=== PATIENT | male | born 1945 | race Hispanic/Latino ===

== ENCOUNTER 2017-05-22 08:05 | Emergency (ER) | payer MEDICARE, BC ==
[2017-05-22 08:28] VITALS: BP 125/60; PULSE 68; RESP 16; TEMP 97.8; O2SAT 98
--- NOTE | 2017-05-22 09:49 | ED PDOC ---
Arrival/HPI - General Chief Complaint: Lower Extremity Problem/Injury Time Seen by Provider: 05/22/17 08:29 Historian: Patient, Spouse, Family - History of Present Illness Narrative History of Present Illness (Text): you were treated in the ED today for being sent by your orthopedic surgeon today to have a re-evaluation right ankle xray to your already splinted right lower extremity ankle which had a dislocation and was last xrayed 05/09/17 with good alignment and the plan is to re-evaluate the alignment today with mild back muscle spasm due to have to move the cast around but otherwise without any trauma/fall/injury/spinal pain/nausea/vomiting/headache/dizziness/difficulty breathing/chest pain/abdomen pain/numbness/tingling/loss of limb function/pain with urination. 05/22/17 09:47 Time/Duration: > week (2 ) Symptom Onset: Gradual Symptom Course: Improving Past Medical History - Provider Review Nursing Documentation Reviewed: Yes - Travel History Have you recently traveled outside [place] w/in the past 3 mons?: No - Cardiac Hx Cardiac Disorders: No - Pulmonary Hx Respiratory Disorders: Yes Hx Sleep Apnea: Yes - Neurological Hx Neurological Disorder: No - HEENT Hx HEENT Disorder: No - Renal Hx Renal Disorder: No - Endocrine/Metabolic Hx Endocrine Disorders: Yes Other/Comment: pre-diabetes - Hematological/Oncological Hx Blood Disorders: No - Integumentary Hx Dermatological Disorder: No - Musculoskeletal/Rheumatological Hx Musculoskeletal Disorders: No - Gastrointestinal Hx Gastrointestinal Disorders: No - Genitourinary/Gynecological Hx Genitourinary Disorders: Yes Hx Prostate Cancer: Yes - Psychiatric Hx Psychophysiologic Disorder: No Hx Substance Use: No Family/Social History - Physician Review Nursing Documentation Reviewed: Yes Family/Social History: No Known Family HX Smoking Status: Never Smoked Hx Alcohol Use: Yes Frequency of alcohol use: Socially Hx Substance Use: No Allergies/Home Meds Allergies/Adverse Reactions: Allergies Sulfa (Sulfonamide Antibiotics) Allergy (Verified 05/22/17 08:24) ANGIOEDEMA Home Medications: Home Meds Medication Instructions Recorded Confirmed Unobtainable 05/22/17 05/22/17 Review of Systems - Review of Systems Constitutional: Normal Eyes: Normal ENT: Normal Respiratory: Normal Cardiovascular: Normal Gastrointestinal: Normal Genitourinary Male: Normal Musculoskeletal: Other (mild back muscle spasm) Skin: Normal Neurological: Normal Endocrine: Normal Hemo/Lymphatic: Normal Psychiatric: Normal Physical Exam Vital Signs Reviewed: Yes Vital Signs Temp Pulse Resp BP Pulse Ox 05/22/17 08:22 97.8 F 68 16 125/60 98 Temperature: Afebrile Blood Pressure: Hypertensive Pulse: Regular Respiratory Rate: Normal Appearance: Positive for: Well-Appearing, Non-Toxic, Comfortable Pain Distress: None Mental Status: Positive for: Alert and Oriented X 3 - Systems Exam Head: Present: Atraumatic, Normocephalic Pupils: Present: PERRL Extroacular Muscles: Present: EOMI Conjunctiva: Present: Normal Ears: Present: Normal Mouth: Present: Moist Mucous Membranes Pharnyx: Present: Normal Nose (External): Present: Atraumatic Nose (Internal): Present: Normal Inspection Neck: Present: Normal Range of Motion Respiratory/Chest: Present: Clear to Auscultation, Good Air Exchange Cardiovascular: Present: Regular Rate and Rhythm Abdomen: No: Tenderness, Distention, Normal Bowel Sounds, Peritoneal Signs, Rebound, Guarding, McBurney's Point Tender, Rovsing's Sign Present, Hernias, Feeding Tubes, Ostomy Tubes, Mass/Organomegaly, Scars, Other Back: Present: Normal Inspection, Other (no c-t-l spinal or paraspinal tenderness. no redness.) Upper Extremity: Present: Normal Inspection Lower Extremity: Present: Other (right lower cast in place, pink toes/neurovasc intact. left lower leg wnl.) Neurological: Present: GCS=15, CN II-XII Intact, Speech Normal, Motor Func Grossly Intact Skin: Present: Warm, Normal Color Psychiatric: Present: Alert, Oriented x 3, Normal Insight, Normal Concentration Medical Decision Making ED Course and Treatment: you were treated in the ED today for being sent by your orthopedic surgeon today to have a re-evaluation right ankle xray to your already splinted right lower extremity ankle which had a dislocation and was last xrayed 05/09/17 with good alignment and the plan is to re-evaluate the alignment today with mild back muscle spasm due to have to move the cast around but otherwise without any trauma/fall/injury/spinal pain/nausea/vomiting/headache/dizziness/difficulty breathing/chest pain/abdomen pain/numbness/tingling/loss of limb function/pain with urination. You were otherwise breathing easily, pink/moist lips, smiling with your , good strength/sensation, alert/oriented, walking easily, clear lungs, no abdomen tenderness, no fever temp 97.8, stable heart rate 68, stable breathing rate 16, excellent oxygen level 98% room air, elevated blood pressure 125/60 which we recommend repeat in 2-3 days primary care office to determine further treatment, radiology right ankle xray report pending, family didn't want to wait for official report and thus signed out AMA and will fu in orthopedic surgeon's office. 05/22/17 09:51 05/22/17 10:36 - RAD Interpretation Narrative RAD Interpretations (Text): 05/22/17 10:38 right ankle xray no acute. Radiology Orders: 05/22/17 08:51 ANKLE RIGHT 3 VIEWS ROUTINE [RAD] Stat Bindery Supervisor: ED Physician Disposition/Present on Arrival - Present on Arrival Any Indicators Present on Arrival: No History of DVT/PE: No History of Uncontrolled Diabetes: No Urinary Catheter: No History of Decub. Ulcer: No History Surgical Site Infection Following: None - Disposition Have Diagnosis and Disposition been Completed?: Yes Diagnosis: Ankle injury Disposition: AGAINST MEDICAL ADVICE Disposition Time: 10:39 Patient Plan: Discharge Condition: STABLE Referrals: Corby Scott MD [Primary Care Provider] - Follow up with primary Forms: [employer] (Qatari)
--- NOTE | 2017-05-22 10:52 | RAD ---
PROCEDURE: Right Ankle Radiographs. HISTORY: 71yoM, s/p right ankle injury with cast COMPARISON: 05/09/2017 FINDINGS: BONES: Small bone fragments are seen posteriorly which appear to arise from the articular surface of the tibia. The finding is unchanged. Films are obtained through plaster cast JOINTS: Normal. No osteoarthritis. Ankle mortise maintained. Talar dome intact SOFT TISSUES: Normal. OTHER FINDINGS: None. IMPRESSION: Small bone fragments are seen posteriorly which appear to arise from the articular surface of the tibia. The finding is unchanged. Films are obtained through plaster cast.
== END 2017-05-22 10:55 | disposition left against medical advice (07) ==
LOC: ED 08:05
DX: S99.911D Unspecified injury of right ankle, subsequent encounter (principal); X58.XXXD Exposure to other specified factors, subsequent encounter